=== PATIENT | female | born 1980 | race Caucasian/White ===

== ENCOUNTER 2025-05-22 14:16 | Outpatient (OUT) | payer OTHER, SELFPAY ==
--- NOTE | 2025-05-22 14:28 | ECG_ITS ---
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
== END 2025-05-22 14:17 | disposition home or self-care (01) ==
PROVIDERS: Visit Provider Obstetrics & Gynecology
DX: Z01.810 Encounter for preprocedural cardiovascular examination (principal); N93.8 Other specified abnormal uterine and vaginal bleeding; D25.0 Submucous leiomyoma of uterus
CPT/HCPCS: 93005

== ENCOUNTER 2025-06-05 07:02 | Day surgery (SDC) | payer OTHER, SELFPAY ==
--- OUTSIDE RECORDS SUMMARY | 2025-05-22 14:34 | XMS_ITS | Clinical Summary ---
Author Organization [facility] Address [address] [place] [address] Care Team Providers Care Parking Cashier Name Role Phone Unavailable Primary Care Provider Unavailabl e Allergies No known active allergies Medications iron polysaccharides (ProFe) 391.3 (180 Fe) MG capsuleIndications: Other iron deficiency anemia Take 1 capsule (391.3 mg) by mouth Daily 30 capsule 6 5 05/08/20 25 Encounters Date Type Department Care Team Description 05/07/2025 11:10 AM EDT Consult [facility] [place] [address] [place] [address] Chris De Jesus DO Pre-op examination; Intramural and submucous leiomyoma of uterus; Request for sterilization; Dysfunctional uterine bleeding 05/01/2025 Travel 04/08/2025 1:10 PM EDT Consult KASSI BUTTS [facility] [place] [place] [address] Chris De Jesus DO Dysfunctional uterine bleeding; History of uterine fibroid; Subserous leiomyoma of uterus; Request for sterilization; Enlarged uterus; Other iron deficiency anemia 04/08/2025 Bamboo flowsheet KASSI BUTTS [address] [place] [address] Chris De Jesus DO 04/01/2025 Travel 03/18/2025 Orders Only KASSI BUTTS [address] [facility] [place] [address] Smiley Tracy CNM Dysfunctional uterine bleeding; History of uterine fibroid 03/11/2025 2:00 PM EDT Ancillary Procedure [facility] [address] [facility] [address] [place] [address] Dysfunctional uterine bleeding 03/11/2025 1:00 PM EDT Ancillary Procedure [facility] [address] [facility] [address] [place] [address] Breast cancer screening by mammogram 03/11/2025 Results Follow-Up [facility] [address] [place] [address] Judy Kamara MA CBC, Comprehensive metabolic panel, TSH, Additional followed-up results: 3 03/11/2025 Travel 03/07/2025 Travel 03/05/2025 3:00 PM EDT Office Visit [facility] [address] [place] [address] Smiley Tracy CNM Wellness examination (Primary Dx); Screening for cervical cancer; Breast cancer screening by mammogram; Normal gynecologic examination; Dysfunctional uterine bleeding 03/05/2025 Bamboo flowsheet [facility] [address] [place] [address] Smiley Tracy CNM 02/27/2025 Travel from Last 3 Months Family History Medical History Relation Name Comments Diabetes Father Hypertension Father Relation Name Status Comments Father Alive Mother Alive Social History Tobacco Use Types Packs/Day Years Used Date Smoking Tobacco: Former Cigarettes 1 - 2006 Smokeless Tobacco: Never Tobacco Cessation:Counseling Given: Not Answered Alcohol Use Standard Drinks/Week Comments Not Currently 0 (1 standard drink = 0.6 oz pur e alcohol) Comments No Sex and Gender Information Value Date Recorded Sex Assigned at Not on file Legal Sex Female 7:47 PM EDT Gender Identity Not on file Sexual Orientation Not on file Last Filed Vital Signs Vital Sign Reading Time Taken Comments Blood Pressure 124/78 05/07/2025 11:10 AM EDT Pulse - - Temperature - - Respiratory Rate - - Oxygen Saturation - - Inhaled Oxygen Concentration - - Weight 115 kg (254 lb) 05/07/2025 11:10 AM EDT Height 170.2 cm (5' 7 ) 05/07/2025 11:10 AM EDT Body Mass Index 39.78 05/07/2025 11:10 AM EDT Plan of Treatment Upcoming Encounters Date Type Department Care Team (Late st Contact Info) Description 06/15/2025 8:40 AM EDT Office Visit [facility] [address] [facility] [place] [address] Chris De Jesus DO [address] [facility] [address] [place] [address] Health Maintenance Due Date Last Done Comments CT Colonography 1980 Colonoscopy 1980 Colorectal Cancer Screening 1980 FIT-DNA 1980 FIT 1980 FOBT 1980 Sigmoidoscopy 1980 Pap Smear 2000 Cervical Cancer Screening 08/07/2024 HPV/Cotest 08/07/2024 08/07/2019 Influenza Vaccine (#1) 2025 9, 07/27/2017, 07/26/2015, Additional history exists Mammogram 03/11/2026 03/11/2025, 07/23/2019 Procedures Procedure Name Priority Date/Time Associated Diagnosis Comments US PELVIS TRANSVAGINAL Routine 2:01 PM EDT Dysfunctional uterine bleeding BI MAMMOGRAM SCREENING TOMOSYNTHESIS BILATERAL Routine 03/11/2025 1:10 PM EDT Breast cancer screening by mammogram THINPREP IMAGING PAP AND HPV DNA REFLEX HPV 16,18 Routine 03/05/2025 4:10 PM EDT Screening for cervical cancer LIPID PANEL Routine 03/05/2025 3:54 PM EDT Wellness examination TSH Routine 03/05/2025 3:54 PM EDT Wellness examination COMPREHENSIVE METABOLIC PANEL Routine 03/05/2025 3:54 PM EDT Wellness examination CBC Routine 03/05/2025 3:54 PM EDT Wellness examination Q - THINPREP(R) TIS AND HPV MRNA E6/E7 RFL HPV 16,18/45 Routine 08/07/2019 from Last 3 Months or Most Recently Relevant to Health Maintenance Results * US pelvis transvaginal (03/11/2025 2:01 PM EDT) Anatomical Region Laterality Modality Pelvis Ultrasound 03/13/2025 10:2 7 AM EDT Narrative 03/13/2025 10:27 AM EDT EXAM: US PELVIS TRANSVAGINAL HISTORY: Dysfunctional uterine bleeding. COMPARISON: None available. TECHNIQUE: Two-dimensional transvaginal grayscale ultrasound imaging of the pelvis was performed. FINDINGS: UTERUS 12.3 x 6.9 x 7.7 cm The uterus is anteverted in position and demonstrates a mildly heterogeneous echotexture. There is a 4.9 cm subserosal fibroid at the posterior uterine body. ENDOMETRIUM 1.0 cm The endometrium demonstrates a normal, homogeneous echotexture. The bilateral ovaries are not visualized due to overlying bowel gas. No fluid is present within the cul-de-sac. IMPRESSION: 1. Mildly heterogeneous uterus with a fibroid. 2. Bilateral ovaries not visualized due to overlying bowel gas. Interpreted by: Electronically signed by LIZZIE NEWMAN II, MD, PHD at 13-Mar-2025 10:25:34 AM [facility] Procedure Note Lizzie Newman MD - 03/13/2025 EXAM: US PELVIS TRANSVAGINAL HISTORY: Dysfunctional uterine bleeding. COMPARISON: None available. TECHNIQUE: Two-dimensional transvaginal grayscale ultrasound imaging ofthe pelvis was performed. FINDINGS: UTERUS 12.3 x 6.9 x 7.7 cm The uterus is anteverted in position and demonstrates a mildlyheterogeneous echotexture. There is a 4.9 cm subserosal fibroid at theposterior uterine body. ENDOMETRIUM 1.0 cm The endometrium demonstrates a normal, homogeneous echotexture. The bilateral ovaries are not visualized due to overlying bowel gas. No fluid is present within the cul-de-sac. IMPRESSION: 1. Mildly heterogeneous uterus with a fibroid. 2. Bilateral ovaries not visualized due to overlying bowel gas. Interpreted by: Electronically signed by LIZZIE NEWMAN II, MD, PHD [id number] 10:25:34 AM [facility] us Smiley Tracy CN IMG US PROCEDURES Final Resu lt * Bilateral screening mammogram with tomosynthesis (03/11/2025 1:10 PM EDT) Anatomical Region Laterality Modality Breast Bilateral Mammography 03/11/2025 4:33 PM EDT Impressions 03/11/2025 4:41 PM EDT Impression: No specific evidence of malignancy seen in either breast. BIRADS 2 - Benign Findings DENSITY: The breasts are almost entirely fatty. FOLLOW-UP: Routine Screening Mammogram ELECTRONICALLY SIGNED BY: Isma Doyle M.D. Narrative 03/11/2025 4:41 PM EDT Examination: BI MAMMOGRAM SCREENING TOMOSYNTHESIS BILATERAL Clinical History: screening Technique: Screening digital mammography study of both breasts was performed with 2-D and 3-D tomosynthesis imaging. Study was compared to the prior exam dated 07/23/2019. Findings: There is no evidence of interval dominant spiculated mass, grouped microcalcifications, or skin thickening which would be suggestive of malignancy. A few benign-appearing calcifications are seen bilaterally. A few small benign-appearing asymmetric densities noted bilaterally, similar to the prior study. Procedure Note Isma Doyle MD - 03/11/2025 Examination: BI MAMMOGRAM SCREENING TOMOSYNTHESIS BILATERAL Clinical History: screening Technique: Screening digital mammography study of both breasts wasperformed with 2-D and 3-D tomosynthesis imaging. Study was compared tothe prior exam dated 07/23/2019. Findings: There is no evidence of interval dominant spiculated mass,grouped microcalcifications, or skin thickening which would be suggestiveof malignancy. A few benign-appearing calcifications are seen bilaterally. A few smallbenign-appearing asymmetric densities noted bilaterally, similar to theprior study. IMPRESSION: Impression: No specific evidence of malignancy seen in either breast. BIRADS 2 - Benign Findings DENSITY: The breasts are almost entirely fatty. FOLLOW-UP: Routine Screening Mammogram ELECTRONICALLY SIGNED BY: Isma Doyle M.D. Smiley Tracy [facility] IMG BI PROCEDURES Final Resu lt * THINPREP IMAGING PAP AND HPV DNA REFLEX HPV 16,18 (03/05/2025 4:10 PM EDT) CLINICAL INFORMATION [facility] Comment:None given LMP [facility] Comment:NONE GIVEN PREV. PAP [facility] Comment:NONE GIVEN PREV. BX [facility] Comment:NONE GIVEN SOURCE [facility] Comment:None given STATEMENT OF ADEQUACY [facility] Comment: Satisfactory for evaluation. Endocervical/transformation zone component absent. INTERPRETATION/RESU LT [facility] Comment: Cytology Results: Negative for intraepithelial lesion or malignancy. COMMENT [facility] Comment: This case could not be evaluated with computer assisted technology. The slide was manually screened according to routine procedures. BENCH MOLDER [facility] Comment: [facility], CT(ASCP) CT Screening Location: [place] [address] REVIEW BENCH MOLDER [facility] Comment: , CT(ASCP) CT screening location: [place] [address]. (ALWAYS MESSAGE) [facility] Comment: EXPLANATORY NOTE: The Pap is a screening test for cervical cancer. It is not a diagnostic test and is subject to false negative and false positive results. It is most reliable when a satisfactory sample, regularly obtained, is submitted with relevant clinical findings and history, and when the Pap result is evaluated along with historic and current clinical information. HPV DNA, HIGH RISK, CERVICAL Not Detected NOT DETECTED [facility] Comment: Not Detected High Risk HPV types (16,18,31,33,35,39,45,51,52, 56,58,59,66,68) were not detected. Other HPV types which cause anogenital lesions may be present. The significance of the other types of HPV in malignant processes has not been established. Methodology: Real Time PCR Swab Cervical swab / Unknown 03/05/2025 4:10 PM EDT 03/06/2025 2:38 AM EDT Narrative Resulting Agency Comment Performing Organization Information Site ID: AMD Name: [facility] Address: [address] [place] [address] [place], [place] Director: Rahat Hart M.D.,PhD Site ID: [id number] Name: [facility] Address: [address] [place] [address], [address] [place] [phone] Director: Oni Arreguin MD us Smiley L Floro CNM LAB CYTOLOGY ORDERABLES Kristan l Result Performing Organization Address City/[facility]/ZIP Co de Phone Number [facility] * (ABNORMAL) CBC (03/05/2025 3:54 PM EDT) WHITE BLOOD CELL COUNT 7.8 3.8 - 10.8 Thousand/u L [facility] RED BLOOD CELL COUNT 4.53 3.80 - 5.10 Million/uL [facility] HEMOGLOBIN 10.4(L) 11.7 - 15.5 g/dL [facility] HEMATOCRIT 35.2 35.0 - 45.0 % [facility] MCV 77.7(L) 80.0 - 100.0 fL [facility] MCH 23.0(L) 27.0 - 33.0 pg [facility] MCHC 29.5(L) 32.0 - 36.0 g/dL [facility] Comment: For adults, a slight decrease in the calculated MCHC value (in the range of 30 to 32 g/dL) is most likely not clinically significant; however, it should be interpreted with caution in correlation with other red cell parameters and the patient's clinical condition. RDW 15.7(H) 11.0 - 15.0 % [facility] PLATELET COUNT 367 140 - 400 Thousand/u L [facility] MPV 10.1 7.5 - 12.5 fL [facility] Blood Venous blood specimen / Unknown 03/05/2025 3:54 PM EDT 03/05/2025 3:55 PM EDT Narrative Resulting Agency Comment Performing Organization Information Site ID: QPT Name: [facility] Address: [address] [place] [address], [address] [place] [phone] Director: Oni Arreguin MD us Smileyvin Tracy CNM LAB BLOOD ORDERABLES Final R esult Performing Organization Address City/[facility]/ZIP Co de Phone Number [facility] * TSH (03/05/2025 3:54 PM EDT) TSH 1.00 mIU/L [facility] Comment: Reference Range > or = 20 Years 0.40-4.50 Ranges First trimester 0.26-2.66 Second trimester 0.55-2.73 Third trimester 0.43-2.91 Blood Venous blood specimen / Unknown 03/05/2025 3:54 PM EDT 03/05/2025 3:55 PM EDT Narrative Resulting Agency Comment Performing Organization Information Site ID: QPT Name: [facility] Address: [address] [place] [address], [address] [place] [phone] Director: Oni Arreguin MD Smiley Tracy CNM LAB BLOOD ORDERABLES Final R esult [facility] * (ABNORMAL) Lipid panel (03/05/2025 3:54 PM EDT) CHOLESTEROL, TOTAL 225(H) <200 mg/dL [facility] HDL CHOLESTEROL 78 > OR = 50 mg/dL [facility] TRIGLYCERIDES 73 <150 mg/dL [facility] LDL CHOLESTEROL 130(H) mg/dL (calc) [facility] Comment: Reference range: <100 Desirable range <100 mg/dL for primary prevention; <70 mg/dL for patients with CHD or diabetic patients with > or = 2 CHD risk factors. LDL-C is now calculated using the Pawel-Minoo calculation, which is a validated novel method providing better accuracy than the Friedewald equation in the estimation of LDL-C. Pawel GONZÁLES et al. ROBERT. 2013;310(19): 1968-6939 (http://education.QA on Request.[employer]/faq/IPE230) CHOL/HDLC RATIO 2.9 <5.0 (calc) [facility] NON HDL CHOLESTEROL 147(H) <130 mg/dL (calc) [facility] Comment: For patients with diabetes plus 1 major ASCVD risk factor, treating to a non-HDL-C goal of <100 mg/dL (LDL-C of <70 mg/dL) is considered a therapeutic option. Blood Venous blood specimen / Unknown 03/05/2025 3:54 PM EDT 03/05/2025 3:55 PM EDT Narrative Resulting Agency Comment Performing Organization Information Site ID: QPT Name: [facility] Address: [address], [address] [place] [address] Director: Oni Arreguin MD us Smiley Tracy CNM LAB BLOOD ORDERABLES Final R esult [facility] * Comprehensive metabolic panel (03/05/2025 3:54 PM EDT) [facility] Glucose 79 65 - 99 mg/dL [facility] Comment: Fasting reference interval BUN 9 7 - 25 mg/dL [facility] Creatinine 0.60 0.50 - 0.99 mg/dL [facility] EGFR 113 > OR = 60 mL/min/1. 73m2 [facility] BUN/CREATININE RATIO SEE NOTE: 6 - 22 (calc) [facility] Comment: Not Reported: BUN and Creatinine are within reference range. Sodium 137 135 - 146 mmol/L [facility] Potassium, Bld 3.8 3.5 - 5.3 mmol/L [facility] Chloride 101 98 - 110 mmol/L [facility] Carbon Dioxide 25 20 - 32 mmol/L [facility] Calcium 9.1 8.6 - 10.2 mg/dL [facility] PROTEIN, TOTAL 7.5 6.1 - 8.1 g/dL [facility] ALBUMIN 4.4 3.6 - 5.1 g/dL [facility] GLOBULIN 3.1 1.9 - 3.7 g/dL (calc) [facility] ALBUMIN/GLOBULIN RATIO 1.4 1.0 - 2.5 (calc) [facility] BILIRUBIN, TOTAL 0.5 0.2 - 1.2 mg/dL [facility] ALKALINE PHOSPHATASE 69 31 - 125 U/L [facility] AST 15 10 - 35 U/L [facility] ALT 11 6 - 29 U/L [facility] Blood Venous blood specimen / Unknown 03/05/2025 3:54 PM EDT 03/05/2025 3:55 PM EDT Narrative Resulting Agency Comment Performing Organization Information Site ID: QPT Name: [facility] Address: [facility], [address] [place] [address] Director: Oni Arreguin MD us Smiley Tracy CNM LAB BLOOD ORDERABLES Final R esult [facility] * Q - THINPREP(R) TIS AND HPV MRNA E6/E7 RFL HPV 16,18/45 (08/07/2019) CLINICAL INFORMATION: None given [facility] LMP: None given [facility] PREV. PAP: None given [facility] PREV. BX: None given [facility] SOURCE: Cervix [facility] STATEMENT OF ADEQUACY: SEE NOTE [facility] Comment: Satisfactory for evaluation. Endocervical/transformation zone component absent. INTERPRETATION/RE SULT: Negative for intraepithelial lesion or malignancy. [facility] COMMENT: This Pap test has been evaluated with computer assisted technology. [facility] BENCH MOLDER: SEE NOTE NO [facility] Comment: BH, CT(ASCP) CT screening location: [email or web address] [address]. COMMENT SEE NOTE [facility] Comment: EXPLANATORY NOTE: The Pap is a screening test for cervical cancer. It is not a diagnostic test and is subject to false negative and false positive results. It is most reliable when a satisfactory sample, regularly obtained, is submitted with relevant clinical findings and history, and when the Pap result is evaluated along with historic and current clinical information. HPV MRNA E6/E7 Not Detected Not Detected [facility] Comment: This test was performed using the APTIMA HPV Assay ([employer] This assay detects E6/E7 viral messenger RNA (mRNA) from 14 high-risk HPV types (16,18,31,33,35,39,45,51,52,56,58,59,66,68). The analytical performance characteristics of this assay have been determined by [facility]. The modifications have not been cleared or approved by the FDA. This assay has been validated pursuant to the CLIA regulations and is used for clinical purposes. 08/07/2019 Teddy Dean MASKING MACHINE [employer] Final Result [facility] from Last 3 Months or Most Recently Relevant to Health Maintenance Insurance [facility]
--- OUTSIDE RECORDS SUMMARY | 2025-05-22 14:34 | XMS_ITS | Clinical Summary ---
Author Organization [employer] [facility] tem Address [id number] [address] [place] [address] Care Team Providers Care Hris Specialist Name Role Phone Óscar Winston MD Primary Care Provider [phone] Social History Tobacco Use Types Packs/Day Years Used Date Smoking Tobacco: Never Assessed Childcare Answer Date Recorded Childcare Unknown 03/12/2019 Employment Answer Date Recorded Employment Unknown 03/12/2019 Purpose - Life Answer Date Recorded Purpose and direction in life Unknown Comments Unknown Sex and Gender Information Value Date Recorded Sex Assigned at Not on file Legal Sex Female 11:35 AM EDT Gender Identity Not on file Sexual Orientation Not on file Plan of Treatment Not on file Medical Devices Not on file Insurance [employer] Care Teams Hris Specialist Relationship Specialty Start Date End Date Óscar Winston MD [address] [place] [address] PCP - General Family Medicine 03/30/17
[2025-05-22 14:52] VITALS: BP 125/85; PULSE 76; TEMP 36.4; O2SAT 99; BMI 39.9
[2025-06-05] VITALS (21 sets, daily range): BP systolic 104–153; BP diastolic 68–94; PULSE 56–95; TEMP 36.2–36.3; O2SAT 16–100; BMI 40.1
[2025-06-05 07:11] LABS: Hematocrit 36.1 % (36.0-48.0); Hemoglobin 11.3 g/dL (12.0-16.0); Immature Granulocytes Abs Auto 0.02 10^3/uL (0.00-0.03); Immature Granulocytes Pct Auto 0.3 % (0.0-0.5); Lymphocytes Absolute Auto 2.3 10^3/uL (1.2-3.8); Mean Corpuscular HGB Conc 31.3 g/dL (29.9-35.2); Mean Corpuscular Hemoglobin 25.2 pg (26.7-34.0); Mean Corpuscular Volume 80.6 fL (81.0-99.0); Platelet Count 336 10^3/uL (150-450); Red Blood Count 4.48 10^6/uL (4.20-5.40); White Blood Count 7.7 10^3/uL (4.0-11.0)
--- NOTE | 2025-06-05 09:43 | PM.ONB ---
Brief Operative Note Date of procedure: 06/05/25 Pre-op diagnosis general: pelvic pain, menorrhagia, desires permanent sterilization, muliparity Post-op diagnosis: same as pre-op Procedure: NAME OF PROCEDURE: robotic assisted Laparoscopic bilateral salpingectomy, with d&c hysteroscopy with myosure please note significant abdominal adhesions to anterior abdominal wall PROCEDURE: The patient was taken back to the OR where she was prepped and draped in the normal sterile fashion after being placed in the dorsal lithotomy position, after being placed under general anesthesia without difficulty. a weighted speculum was then placed into the vagina. Pap and endometrial bx were performed without difficultyThe anterior lip was grasped with a single tooth tenaculum. The patient was then sounded to approximatley 9cm. The patient was gently sounded using Hegar dilators and the hysteroscope was passed through the cervix into the uterus where both ostia were seen. No gross evidence of polyps, fibroids or malignancy. the myosure was performed with difficulty. endometrial currettings sent of to pathology. All instruments were removed from the vagina. A wet sponge stick was placed into the patient's vagina. Attention was then turned to the patient's abdomen, where a scalpel was used to make a small infraumbilical incision. The S retractors were then used to dissect the underlying layers until the fascia could be seen. The fascia was then grasped with Abiodun clamps and tented up. A knife was then used to make a small incision to the fascia. The muscle was identified, at that time two sutures of #0 Vicryl on a GI needlewas then used and placed through the fascia. The peritoneum was then identified and entered bluntly. The 10-4 Joshua was then placed into the patient's abdomen. This was confirmed with direct visualization of the bowel, using the laparoscope. The patient's abdomen was then insufflated using approximately 4 liters of CO2 gas. Survey of the patient's abdomen demonstrated normal appearing ovaries, uterus and tubes. A second and third lateral robotic ports, which was 8mm in size, was then placed laterally after incision was made in the skin under direct visualization. the robotic arms were engaged. The patient's tube on the patient's right side was identified. Partial lt salpingectomy was performed due to significant adhesions, rt fimbriectomy was performed. The lateral ports were then moved under direct visualization with excellent hemostasis. The abdomen was deinsufflated. All instruments were removed from the patient's abdomen. The fascia was closed using the #0 Vicryl on GI needle. The skin was closed using 4-0 Vicryl subcuticularly. All instruments were removed from the patient's vagina as well. The patient was taken out of the dorsal lithotomy position and placed in the supine position and taken to recovery in stable condition. Sponge, lap and needle counts were correct x2. ??? Anesthesia: KAYDEN Surgeon: Chris De Jesus Life Management Teacher: Kristine Shafer Estimated blood loss (mL): 5 Pathology: other (endometrial currettings) Condition: stable Disposition: floor Urinary Catheter Management Urinary Catheter Management Urethral: Cath placed during this visit: no
--- NOTE | 2025-06-05 12:30 | PC.NURSE ---
PATIENT RESTING WITH EYES CLOSED ALLOWED TO SLEEP DUE TO NAUSEA
--- NOTE | 2025-06-05 14:36 | PC.NURSE ---
1415:pt up to side of bed,pt reports no nausea at this time and wishes to go home.
== END 2025-06-05 14:25 | disposition home or self-care (01) ==
PROVIDERS: Visit Provider Obstetrics & Gynecology
PROC: (CPT 840; principal; 2025-06-05 08:15)
DX: Z30.2 Encounter for sterilization (principal); N93.8 Other specified abnormal uterine and vaginal bleeding; D25.0 Submucous leiomyoma of uterus; K66.0 Peritoneal adhesions (postprocedural) (postinfection); Z87.891 Personal history of nicotine dependence
CPT/HCPCS: 58558; 58661; 36415; 84702; 85025; J0131; J1100; J1171; J1453; J1885; J2250; J2405; J2704; J3010

== ENCOUNTER 2025-07-02 12:30 | Outpatient (OUT) | payer OTHER, SELFPAY | END 2025-07-02 12:31 | disposition home or self-care (01) | PROVIDERS: Visit Provider Obstetrics & Gynecology | DX: Z01.818 Encounter for other preprocedural examination (principal); N92.0 Excessive and frequent menstruation with regular cycle; N93.9 Abnormal uterine and vaginal bleeding, unspecified; R10.2 Pelvic and perineal pain ==

== ENCOUNTER 2025-07-10 07:07 | Day surgery (SDC) | payer OTHER, SELFPAY ==
[2025-07-02 12:48] VITALS: BP 136/81; PULSE 88; TEMP 36.4; O2SAT 99; BMI 40.3
[2025-07-10 07:13] VITALS: BP 121/88; PULSE 92; TEMP 36.1; O2SAT 97; BMI 40.3
[2025-07-10 07:16] LABS: Hematocrit 35.5 % (36.0-48.0); Hemoglobin 11.0 g/dL (12.0-16.0); Immature Granulocytes Abs Auto 0.02 10^3/uL (0.00-0.03); Immature Granulocytes Pct Auto 0.3 % (0.0-0.5); Lymphocytes Absolute Auto 1.9 10^3/uL (1.2-3.8); Mean Corpuscular HGB Conc 31.0 g/dL (29.9-35.2); Mean Corpuscular Hemoglobin 25.6 pg (26.7-34.0); Mean Corpuscular Volume 82.8 fL (81.0-99.0); Platelet Count 284 10^3/uL (150-450); Red Blood Count 4.29 10^6/uL (4.20-5.40); White Blood Count 7.2 10^3/uL (4.0-11.0)
[2025-07-10] MEDS: SCOPOLAMINE 1 MG/3 DAYS TRANSDERM PATCH 1 PATCH TD (07:28)
--- NOTE | 2025-07-10 09:26 | PM.ONB ---
Brief Operative Note Date of procedure: 07/10/25 Pre-op diagnosis general: menorrhagia Post-op diagnosis: same as pre-op Procedure: NAME OF PROCEDURE: [ ] Vera endometrial ablation with hysteroscopy. PROCEDURE: The patient was taken back to the OR where she was prepped and draped in the normal sterile fashion after being placed in the dorsal lithotomy position, after being placed under general anesthesia without difficulty.? A weighted speculum was placed into the vagina. The anterior lip was grasped with a single tooth tenaculum. The patient was then sounded to approximated 8cm. The patient?s cervix was gently dilated using hegardilators. The hysteroscope was passed through the cervix into the uterus where both ostia were seen. No gross evidence of polyps, fibroids or malignancy. The cervical length was noted to be 4 cm. The total cavity length is 4cm.? The Vera ablation apparatus was set to approximately 4cm in length. This was placed through the cervix and into the uterus. After the seal was tested, at that time the total ablation of 120 seconds was performed with the Vera withoutdifficulty. All instruments were removed from the vagina. Excellent hemostasis noted.? Sponge and lap count correct times 2.? Patient taken to recovery in stable condition. Anesthesia: MAC Surgeon: Chris De Jesus Estimated blood loss (mL): 5 Pathology: none sent Condition: stable Disposition: floor Urinary Catheter Management Urinary Catheter Management Straight: Cath placed during this visit: no
[2025-07-10 09:30] VITALS: BP 123/102; PULSE 84; TEMP 36.6; O2SAT 92
[2025-07-10 09:45] VITALS: BP 131/98; PULSE 80; O2SAT 96
[2025-07-10 10:00] VITALS: BP 146/92; PULSE 78; O2SAT 97
[2025-07-10 10:30] VITALS: BP 133/87; PULSE 78; O2SAT 99
--- NOTE | 2025-07-10 11:01 | PC.NURSE ---
1035: pt ambulates to bathroom with SBA,voids without difficulty. urine clear,yellow
== END 2025-07-10 10:40 | disposition home or self-care (01) ==
LOC: SURGOUT 07:07
PROVIDERS: Visit Provider Obstetrics & Gynecology
PROC: (CPT 952; principal; 2025-07-10 08:15)
DX: N92.0 Excessive and frequent menstruation with regular cycle (principal); N93.9 Abnormal uterine and vaginal bleeding, unspecified; Z87.891 Personal history of nicotine dependence; D64.9 Anemia, unspecified; R10.30 Lower abdominal pain, unspecified
CPT/HCPCS: 58563; 36415; 84702; 85025; J0131; J1100; J1885; J2250; J2405; J2704; J3010